=== PATIENT | male | born 1970 ===

== ENCOUNTER 2024-11-01 10:34 | Emergency (ER) | payer SELFPAY ==
[2024-11-01] VITALS (8 sets, daily range): BP systolic 122–133; BP diastolic 92–96
[~2024-11-01] VITALS: Ht 170.2 cm; Wt 95.0 kg
[2024-11-01 11:04] LABS: BASO% 0.4 % (0-3); EOS% 1.4 % (0-8); HEMATOCRIT 47.1 % (39.0-50.0); IMMATURE GRANULOCYTES 0.2 % (0.0-5.0); LYMPH% 25.5 % (15-41); MEAN CELL VOLUME 105.1 fL CALC (80.0-100.0); MEAN CORPUSCULAR HGB 33.5 pG CALC (26.0-32.0); MEAN CORPUSCULAR HGB CONC 31.8 g/dL CAL (32.0-36.0); MONO% 10.8 % (2-13); NEUT# 3.41 thou/uL (1.82-7.42); NEUT% 61.7 % (42-76); RED BLOOD COUNT 4.48 mill/uL (4.70-6.10); RED CELL DISTRI WIDTH 13.6 % (11.5-15.5)
[2024-11-01 11:18] LABS: ALBUMIN 3.9 g/dL (3.2-5.0); BILIRUBIN, TOTAL 1.3 mg/dL (0.2-1.3); CHOLESTEROL HDL RATIO 2.7 (<4.4 (CALC)); CREATININE 0.9 mg/dL (0.7-1.3); POTASSIUM 4.4 mmol/l (3.5-5.1); TOTAL PROTEIN 7.2 g/dL (6.3-8.2)
[2024-11-01 11:21] LABS: INTERNATIONAL NORMALIZED RATIO 1.2 RATIO (0.7-1.3)
[2024-11-01 11:48] LABS: PROTHROMBIN TIME 12.7 SECONDS (9.0-12.5)
== END 2024-11-01 11:45 | disposition short-term general hospital (02) | DRG 65 ==
LOC: ED 10:34
PROVIDERS: Family Medicine
DX: I61.1 Nontraumatic intracerebral hemorrhage in hemisphere, cortical (principal); R47.01 Aphasia; R29.707 NIHSS score 7; E11.9 Type 2 diabetes mellitus without complications